=== PATIENT | male | born 1985 | race Caucasian/White ===

== ENCOUNTER 2017-08-11 08:48 | Emergency (ER) | payer OTHER ==
[~2017-08-11] VITALS: Ht 182.9 cm; Wt 111.8 kg
[2017-08-11 09:45] LABS: HEMATOCRIT 45.3 % (38.0-50.0); HEMOGLOBIN 15.6 G/DL (12.5-16.6); MCH 31.2 PG (29.0-34.0); MCHC 34.4 G/DL (30.0-36.0); MCV 90.6 FL (86-99); PLATELET COUNT 146 K/uL (156-360); RBC DIS.WIDTH-CV 12.7 % (11.8-14.6); RBC DIS.WIDTH-SD 41.7 % (39-53); WHITE BLOOD COUNT 10.1 K/uL (4.1-10.2)
[2017-08-11 10:14] LABS: CHLORIDE 104 MEQ/L (99-109); CREATININE 1.1 MG/DL (0.6-1.3); GFR ESTIMATE (CALCULATED) > 59 mL/min/ (58.99-99999); GLUCOSE 95 mg/dL (70-99); POTASSIUM 3.7 MEQ/L (3.7-5.4); SODIUM 140 MEQ/L (136-147); UREA NITROGEN (BUN) 14 mg/dL (9-23)
[2017-08-11] MEDS ORDERED: CLEOCIN300 MG PO (13:31)
[2017-08-11] MEDS ORDERED: PERCOCET 5/31 TABLET PO (13:52)
[2017-08-11 14:03] VITALS: BP 123/80
[2017-08-12] MEDS ORDERED: MOTRIN800 MG PO (05:24)
== END 2017-08-11 14:08 | disposition home or self-care (01) ==
LOC: EME 08:48
PROVIDERS: Nurse Practitioner Family
PROC: 3E0T3BZ Introduction of Anesthetic Agent into Peripheral Nerves and Plexi, Percutaneous Approach (ICD-10-PCS; principal; 2017-08-11)
DX: K04.7 Periapical abscess without sinus (principal); K02.9 Dental caries, unspecified
CPT/HCPCS: 70491; 80048; 85027; 99281; 99285; J1885; J7120

== ENCOUNTER 2017-08-12 02:26 | Emergency (ER) | payer OTHER ==
[~2017-08-12] VITALS: Ht 182.9 cm; Wt 110.0 kg
[~2017-08-12 02:26] MED LIST: CLEOCIN300 MG PO; PERCOCET 5/31 TABLET PO
[2017-08-12 04:35] LABS: HEMATOCRIT 47.7 % (38.0-50.0); HEMOGLOBIN 16.4 G/DL (12.5-16.6); MCH 31.2 PG (29.0-34.0); MCHC 34.4 G/DL (30.0-36.0); MCV 90.9 FL (86-99); PLATELET COUNT 139 K/uL (156-360); RBC DIS.WIDTH-CV 12.8 % (11.8-14.6); RED BLOOD COUNT 5.25 M/uL (4.00-5.50)
[2017-08-12 04:45] LABS: CHLORIDE 103 mEq/L (99-109); POTASSIUM 3.8 mEq/L (3.7-5.4); SODIUM 139 mEq/L (136-147)
[2017-08-12 04:47] LABS: GLUCOSE 105 mg/dL (70-99)
[2017-08-12 04:51] LABS: CREATININE 1.2 mg/dL (0.6-1.3); GFR ESTIMATE (CALCULATED) > 59 mL/min/ (58.99-99999)
[2017-08-12 04:52] LABS: UREA NITROGEN (BUN) 12 mg/dL (9-23)
[2017-08-12] MEDS ORDERED: MOTRIN800 MG PO (05:24)
[2017-08-12 06:45] VITALS: BP 120/82
== END 2017-08-12 06:47 | disposition home or self-care (01) ==
LOC: EME 02:26
PROVIDERS: Physician Assistant
PROC: 0C9X0Z1 Drainage of Lower Tooth, Open Approach, Multiple (ICD-10-PCS; principal; 2017-08-12)
DX: K04.7 Periapical abscess without sinus (principal)
CPT/HCPCS: 80048; 85027; 99281; 99284; J1885; J2405; J7030